=== PATIENT | female | born 1985 | race African-American/Black ===

== ENCOUNTER 2016-07-31 18:01 | Emergency (ER) | payer BC, OTHER ==
[~2016-07-31] VITALS: Ht 157.5 cm; Wt 104.3 kg
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
[2016-07-31] MEDS ORDERED: ACETAMINOPHEN 500 MG TABLET PO ONE (18:30)
[2016-07-31] MEDS ORDERED: CYCLOBENZAPRINE 10 MG TABLET. PO ONE (18:30)
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
[2016-07-31 19:38] VITALS: BP 152/78
[2016-07-31] MEDS ORDERED: CYCL10TA2 PO (19:56)
[2016-07-31] MEDS ORDERED: NAPR375T3 PO (19:56)
== END 2016-07-31 20:09 | disposition home or self-care (01) ==
LOC: ER 19:48
DX: M54.2 Cervicalgia (principal); R51 Headache; V89.2XXA Person injured in unspecified motor-vehicle accident, traffic, initial encounter; Y92.413 State road as the place of occurrence of the external cause; Y93.89 Activity, other specified; Y99.8 Other external cause status
CPT/HCPCS: 70450; 72125; 81025; 99284-25

== ENCOUNTER → 2016-08-12 | Outpatient (CLI) | payer BC ==
[2016-07-31 19:38] VITALS: BP 152/78
[~2016-08-12] MED LIST: CYCL10TA2 PO; NAPR375T3 PO
--- NOTE | 2016-08-12 07:47 | RAD ---
EXAM: Pelvic ultrasound. HISTORY: Pelvic pain. COMPARISON: None. FINDINGS: Sonographic evaluation of the pelvis was performed transabdominally and transvaginally. The uterus is neutral to slightly anteverted and measures 10.6 x 5.7 x 4.8 cm. A few hypoechoic masses are consistent with fibroids. The largest is subserosal/myometrial along the anterior fundus measuring 3.6 x 2.8 cm. Another anteriorly measures 2.1 x 1.7 cm. Another posteriorly measures 2.3 x 2.3 cm. The endometrial stripe measures 5 mm. The right ovary measures 3.5 x 1.9 x 1.4 cm. The left measures 2.5 x 1.3 x 1.2 cm. There is normal flow bilaterally. There are no suspicious lesions. IMPRESSION: 1. Multiple uterine fibroids measure up to 3.6 cm. 2. No cause for acute pain is identified.
== END | disposition home or self-care (01) ==
LOC: US 06:49
PROVIDERS: ATTEND Family Medicine
DX: R10.2 Pelvic and perineal pain (principal); D25.9 Leiomyoma of uterus, unspecified
CPT/HCPCS: 76830; 76856

== ENCOUNTER → 2016-08-21 | Outpatient (CLI) | payer BC, OTHER ==
[2016-07-31 19:38] VITALS: BP 152/78
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
== END | disposition home or self-care (01) ==
LOC: KCIC MRI 14:35
PROVIDERS: ATTEND Family Medicine
DX: M54.2 Cervicalgia (principal)
CPT/HCPCS: 72141